=== PATIENT | male | born 1975 | race American Indian/Alaskan Native ===

== ENCOUNTER 2016-08-14 10:46 | Inpatient (IN) | payer BC, OTHER ==
[2016-08-14 11:16] VITALS: BMI 21.4
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
--- NOTE | 2016-08-14 12:13 | RAD ---
HISTORY: medical clearance COMPARISON: No prior. FINDINGS: LUNGS: No active pulmonary disease. PLEURA: No significant pleural effusion identified, no pneumothorax apparent. CARDIOVASCULAR: Normal. OSSEOUS STRUCTURES: No significant abnormalities. VISUALIZED UPPER ABDOMEN: Normal. OTHER FINDINGS: None. IMPRESSION: No active disease.
[2016-08-14 12:51] LABS: ADD MANUAL DIFF? NO
[2016-08-14 12:58] LABS: BASO # 0.03 K/mm3 (0.0-2.0); BASO % 0.6 % (0.0-3.0); EOS # 0.1 (0.0-0.7); EOS % 2.3 % (1.5-5.0); GRAN # 2.05 (1.4-6.5); GRAN % 43.2 % (50.0-68.0); HEMATOCRIT 41.8 % (42.0-52.0); LYMPH # 2.1 (1.2-3.4); LYMPH % 44.2 % (22.0-35.0); MEAN CELL VOLUME 82.3 fL (80.0-105.0); MEAN CORPUSCULAR HEMOGLOBIN 29.3 pg (25.0-35.0); MEAN CORPUSCULAR HGB CONC 35.6 g/dl (31.0-37.0); MEAN PLATELET VOLUME 11.4 fl (7.0-11.0); MONO # 0.5 (0.1-0.6); MONO % 9.7 % (1.0-6.0); PLATELET COUNT 194 10^3/uL (120.0-450.0); RED CELL DISTRIBUTION WIDTH 12.5 % (11.5-14.5); WHITE BLOOD COUNT 4.8 10^3/ul (4.5-11.0)
[2016-08-14 13:05] LABS: ALB/GLOB RATIO 1.2 (1.1-1.8); ALKALINE PHOSPHATASE 63 U/L (38-133); ALT/SGPT 17 U/L (7-56); AST/SGOT 26 U/L (15-59); BILIRUBIN,TOTAL 0.4 mg/dL (0.2-1.3); BLOOD UREA NITROGEN 8 mg/dL (7-21); CALCIUM 9.5 mg/dL (8.4-10.5); CARBON DIOXIDE 25 mmol/L (21-33); CHLORIDE 103 mmol/L (95-110); GFR AFRICAN-AMERICAN > 60; GLUCOSE,RANDOM 89 mg/dL (70-110); POTASSIUM 4.2 mmol/L (3.6-5.0); SODIUM 139 mmol/L (132-148); TOTAL PROTEIN 7.5 g/dL (5.8-8.3)
[2016-08-14 13:20] LABS: URINE BILIRUBIN NEGATIVE (NEGATIVE); URINE BLOOD NEGATIVE (NEGATIVE); URINE GLUCOSE (UA) NEGATIVE (NEGATIVE); URINE KETONE NEGATIVE (NEGATIVE); URINE LEUKOCYTE ESTERASE NEGATIVE Leu/uL (NEGATIVE); URINE PROTEIN NEGATIVE mg/dL (<30 mg/dL); URINE UROBILINOGEN 0.2 E.U./dL (<1 E.U./dL)
[2016-08-14 13:23] LABS: URINE APPEARANCE CLEAR (CLEAR); URINE COLOR YELLOW (YELLOW)
[2016-08-14 20:04] VITALS: O2SAT 99
[2016-08-14] MEDS ORDERED: Magnesium Hydroxide Susp 30 ml UD PO PRN (21:06)
[2016-08-14 21:36] VITALS: RESP 20
[2016-08-15 08:09] LABS: CHOLESTEROL 213 mg/dL (130-200); GLUCOSE,FASTING 99 mg/dL (65-110)
--- NOTE | 2016-08-15 12:09 | CARD ---
APPROVED REPORT EKG Measurement Heart [id number] <Conclusion> Normal sinus rhythm Nonspecific T wave abnormality Abnormal ECG
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
--- NOTE | 2016-08-15 16:37 | CON ---
DATE: 08/15/2016 CHIEF COMPLAINT: Evaluation from a neurological etiology psychosis. HISTORY OF PRESENT ILLNESS: A 41-year-old man with no significant past medical history who came [facility] who is a [place] larry, for bizarre and agitated behavior since 08/10/2016. Was transferre d to [facility] where he was released within less than 24 hours and was brought here for further evaluation . He says he feels his head is empty and feels like somebody is listening and he said listening to w hat he is saying. Otherwise, his motor exams and his sensory exam is completely normal. He denies a ny confusional episodes at this time. He gives pretty decent history, though his tangential and his thoughts are disorganized. He denies any headaches, any change in sense of vision, taste or smell. His neuro examination is actually normal in terms of motor and sensory though he has some mild poor a ttention span in terms of cognition. His labs have been unremarkable in terms of his CMP. PAST MEDICAL HISTORY: Nothing significant. Denies any psychiatric history. PAST SURGICAL HISTORY: Denies. FAMILY HISTORY: Noncontributory. SOCIAL HISTORY: , 3 kids, works, has no history of violence. Immigrated from [facility] 17 years ago. No illicit drug use, smoking, or ETOH abuse. FAMILY HISTORY: Noncontributory. PHYSICAL EXAMINATION: VITAL SIGNS: Temperature 98.2, pulse rate is 66, blood pressure 126/84, respiratory rate 20, oxygen 98% on room air. GENERAL: The patient is sitting up in bed in no acute distress. HEENT: Atraumatic, normocephalic. PERRLA. Extraocular muscles intact. NECK: Supple, no JVD, no adenopathy noted. LUNGS: Clear to auscultation. No adventitious sounds. HEART: S1, S2, normal rate and rhythm. No murmurs, rubs, or gallops. ABDOMEN: Soft, nontender, nondistended. Bowel sounds are present. EXTREMITIES: No clubbing, no cyanosis. Peripheral pulses 2+ bilaterally. NEUROLOGIC: The patient is alert, oriented to person, place, month and year. Speech is fluent witho ut any errors. His attention span is slow and his speech is slightly disorganized and tangential. H e does have some loose associations. Otherwise, cranial nerves II through XII are intact. MOTOR: Moves all extremities equally. Normal tone, normal bulk of muscle. No pronator drift seen. SENSORY: Light touch, pinprick, proprioception, vibration intact. DTRs 2+ throughout. COORDINATION: [id number] intact. GAIT: Deferred for now. LABORATORY DATA: Sodium is 139, potassium 4.2, chloride 103, carbon dioxide 25, BUN of 8, creatinine 0.9, random glucose of 89. ASSESSMENT AND PLAN: This is a 41-year-old man with no significant past medical history, came in [place] with bizarre behavior and is being worked up for evaluation for schizophreniform/late onset makeda izophrenia. I was asked to evaluate for his possible psychosis. I feel like psychosis is more of ps ychiatric issue, more of a possibly schizophreniform/schizophrenia etiology rather than anything cent ral in nature. I feel like: 1. We should recommend to get a CAT scan of the head to see his ventricles as well as to see any abn ormalities in the frontal area. 2. Can agree to continue with Risperdal 1 mg a.m./bedtime for psychosis and Cogentin 0.5 mg a.m./bed time for possible extrapyramidal symptoms. 3. Monitor closely and avoid nighttime interruptions and continue current plan of medical management . No further neurological workup needed at this time. Please reconsult if necessary. Jacob Regan MD cc: [phone] TT: 08/15/2016 16:37:29 Confirmation # [id number] Dictation # [id number] benjamin
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
[2016-08-16 07:39] LABS: IRON 48 ug/dL (45-180)
[2016-08-16 07:49] LABS: FREE T4 0.85 ng/dL (0.78-2.19)
[2016-08-16] MEDS: Alum-Mag Hydrox-Simethicone Susp (30 mL) PO PRN (07:51)
[2016-08-16 08:03] LABS: THYROID STIMULATING HORMONE 3.13 mIU/mL (0.46-4.68)
--- NOTE | 2016-08-16 09:46 | CT ---
PROCEDURE: CT HEAD WITHOUT CONTRAST. HISTORY: psyhcosis COMPARISON: None available. TECHNIQUE: Axial computed tomography images were obtained through the head/brain without intravenous contrast. Radiation dose: Total exam DLP = 723 mGy-cm. FINDINGS: HEMORRHAGE: No intracranial hemorrhage. BRAIN: No mass effect or edema. No atrophy or chronic microvascular ischemic changes. VENTRICLES: Unremarkable. No hydrocephalus. CALVARIUM: Unremarkable. PARANASAL SINUSES: In prominent right lateral sphenoid sinus extension-well pneumatized No significant inflammatory changes. MASTOID AIR CELLS: Unremarkable as visualized. No inflammatory changes. OTHER FINDINGS: None. IMPRESSION: Normal CT of the Head.
--- NOTE | 2016-08-16 12:34 | RAD ---
PROCEDURE: Radiographs of the Right Shoulder HISTORY: c/o pain and thinks its dislocated COMPARISON: No prior. FINDINGS: BONES: Normal. No fracture. JOINTS: Normal. Glenohumeral and acromioclavicular joints preserved. No osteoarthritis. SOFT TISSUES: Normal. OTHER FINDINGS: None. IMPRESSION: Normal radiographs of the right shoulder.
--- NOTE | 2016-08-16 13:09 | PN ---
DATE: 08/16/2016 The patient is a 41-year-old, seen and examined, complaining of right shoulder pain. Complaining of having fluid in the ear. Denies any fever or chills. No nausea, vomiting, no diarrhea. PHYSICAL EXAMINATION: VITAL SIGNS: He is afebrile, pulse 77, respirations 20, blood pressure 136/92. LUNGS: Bilateral fair airflow, no rhonchi or crackle. HEART: S1, S2 audible, no murmur. ABDOMEN: Soft, nontender, no rebound, no guarding. NEUROLOGIC: He is awake and alert, able to communicate. LABORATORY DATA: TIBC is 249. Iron is 48. Total cholesterol 212. Thyroid profile is within normal limits. Ceruloplasmin level is pending. Urinalysis is unremarkable. Urine tox is negative. RPR i s negative. CT scan of the head is unremarkable. X-ray of the shoulder, normal radiograph. ASSESSMENT: 1. Right shoulder sprain. 2. Paranoid schizophrenia. 3. Bizarre behavior with disorganized thoughts. PLAN: Will arrange for and examine his ear; however, at this point, I will put him on an anti- inflammatory for his right shoulder sprain and watch his response. Xu Cornejo MD cc: [phone] TT: 08/16/2016 13:09:06 Confirmation # [id number] Dictation # [id number] shyam
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
--- NOTE | 2016-08-17 12:52 | PCM.PYCHPN ---
Psychiatric Progress Note - Psychiatric Progress Note Patient seen today, length of contact: 30 minutes Patient Chief Complaint: "I groggy today" Problems Identified/Issues Discussed: Suicide/ homicide prevention, past psychiatric h/o, current psychiatric symptoms , medical problems, risk/benefits and alternatives of medications, medications compliance, coping strategies, substance abuse h/o, relapse prevention, importance of follow up with psychiatrist and therapist, discharge plan. Medical Problems: pt is healthy pt was seen by medical team had XR of the right shoulder, no pathology was seen by neurology CT of the head WNL Diagnostic Results: 08/14/16 12:45 08/14/16 12:45 Lab Results 08/16/16 07:00: Magnesium 2.0, Iron 48, TIBC 249 L, % Saturation 19 L, Ferritin 85.2, Free T4 0.85, TSH 3rd Generation 3.13 08/15/16 07:45: Fasting Glucose 99, Triglycerides 122, Cholesterol 213 H, LDL Cholesterol Direct 141 H, HDL Cholesterol 47, TSH 3rd Generation 3.04, RPR Nonreactive 08/14/16 12:50: Urine Color Yellow, Urine Appearance Clear, Urine pH 6.0, Ur Specific [place] 1.010, Urine Protein Negative, Urine Glucose (UA) Negative, Urine Ketones Negative, Urine Blood Negative, Urine Nitrate Negative, Urine Bilirubin Negative, Urine Urobilinogen 0.2, Ur Leukocyte Esterase Negative, Urine Opiates Screen Negative, Urine Methadone Screen Negative, Ur Barbiturates Screen Negative, Ur Phencyclidine Scrn Negative, Ur Amphetamines Screen Negative , U Benzodiazepines Scrn Negative, U Oth Cocaine Metabols Negative, U Cannabinoids Screen Negative 08/14/16 12:45: WBC 4.8, RBC 5.08, Hgb 14.9, Hct 41.8 L, MCV 82.3, MCH 29.3, MCHC 35.6, RDW 12.5, Plt Count 194, MPV 11.4 H, Gran % 43.2 L, Lymph % (Auto) 44.2 H, [facility] % (Auto) 9.7 H, Eos % (Auto) 2.3, Baso % (Auto) 0.6, Gran # 2.05, Lymph # 2.1, [facility] # 0.5, Eos # 0.1, Baso # 0.03, Sodium 139, Potassium 4.2, Chloride 103, Carbon Dioxide 25, Anion Gap 15, BUN 8, Creatinine 0.9, Est GFR ( Amer) > 60, Est GFR (Non-Af Amer) > 60, Random Glucose 89, Calcium 9.5, Total Bilirubin 0.4, AST 26, ALT 17, Alkaline Phosphatase 63, Total Protein 7.5 , Albumin 4.1, Globulin 3.4, Albumin/Globulin Ratio 1.2, Salicylates < 1 L, Acetaminophen < 10.0 L, Alcohol, Quantitative < 10 Vital Signs Temp Pulse Resp BP Pulse Ox 08/16/16 07:22 98.4 F 77 20 136/92 H 08/15/16 16:00 75 128/78 08/15/16 06:57 98.2 F 66 20 126/84 08/14/16 21:10 20 08/14/16 21:08 98.3 F 80 20 132/90 08/14/16 20:00 83 16 130/83 99 08/14/16 17:00 72 16 122/70 100 08/14/16 14:02 73 18 128/69 99 08/14/16 12:01 79 18 130/76 99 08/14/16 11:19 98.1 F 85 16 132/80 99 Temp Pulse Resp BP Pulse Ox 97.9 F 69 20 109/68 99 08/17/16 06:56 08/17/16 06:56 08/17/16 06:56 08/17/16 06:56 08/14/16 20:00 DSM 5 Symptoms Update: Patient is a 41 years old -Kaz[place] male originally from [facility], with not known previous psychiatric h/o, pt was admitted to the [facility] psych inpatient unit for evaluation of bizarre and agitated behavior on 08/10/2016, was transferred to the [facility] from where pt was released within less than 24hrs, pt has three kids, currently working in a [employer] company, was brought in by his sister for evaluation of bizarre and disorganized behavior, pt needs further evaluation and stabilization, medication initiation and titration, close observation, medical and neurological evaluation. Pt is Creole speaking, this underwriter utilized staff for translation. pt was seen with the treatment team, pt said "I feel little better, my head not that empty anymore", patient's thought process is better organized. pt c/o feeling sleepy. Pt has future plans to stay with his sister and go back to [facility] "to stay there for couple of months". family dynamics seems to be very poor, pt's left a house for five days with younger child and pt did not know where she was, "when she came back she just said do not talk to her no more". Pt reported that he tolerates meds well, no side effects observed or reported, AIMS 0 Impression: psychosis NOS brief psychotic d/o r/o schizophreniform r/o schizophrenia Medication Change: No (pt felt sleepy) Medical Record Reviewed: Yes Consults ordered or reviewed: medical consult appreciated Neurology consult appreciated Mental Status Examination - Cognitive Function Orientation: Person, Place Memory: Impaired Attention: Poor (some improvement) Concentration: Poor (some improvement) Association: Loose Fund of Knowledge: Poor - Mood Mood: Neutral - Affect Affect: Flat - Formal Thought Process Formal Thought Process: Hallucinations (denied), Delusions (denied), Paranoia, Loosening of associations, Circumstantial, Thought Broadcasting - Suicidal Ideation Suicidal Ideation: No - Homicidal Ideation Homicidal Ideation: No Goal/Treatment Plan - Goal/Treatment Plan Need for Continued Stay: Remain at risks for inpatient hospitalization, Severe depression anxiety, Discharge may exacerbated symptoms, Severe functional impairment Progress Toward Problem(s) and Goals/Treatment Plan: Milieu/structure/supportive therapy Risperdal 1mg am 2hs for psychosis cogentin 0.5mg amhs for possible EPS will give PRN meds Medical consult appreciated labs reviewed Neurology consult, pt has psychosis, and AMS will call for collaterals pt gave permission to speak to his sister Maria De Jesus [phone] collaterals from pt's cousin 08/16/16 will monitor closely Estimated Date of D/C: 08/21/16 (will monitor closely)
--- NOTE | 2016-08-17 13:17 | PN ---
DATE: 08/17/2016 SUBJECTIVE: The patient is a 41-year-old, seen and examined, sitting in chair, states he feels very sleepy after he eats. He is not sure if he has diabetes in the family; however, he is very concerned . PHYSICAL EXAMINATION: GENERAL: Otherwise, he is awake and alert, seems to be doing a little better. VITAL SIGNS: He is afebrile, pulse 60, respirations 20, blood pressure 109/68. LUNGS: Bilateral fair airflow, no rhonchi or crackle. HEART: S1, S2 audible. No murmur. ABDOMEN: Soft, nontender. No rebound, no guarding. NEUROLOGIC: He is awake and alert, communicative, ambulatory. ASSESSMENT AND PLAN: All his metabolic workup is negative. Has been started on psych medication. Wi ll order for fingerstick for the next 24 hours to see his blood sugar level before and after eating. Xu Cornejo MD cc: [phone] TT: 08/17/2016 13:17:09 Confirmation # [id number] Dictation # [id number] shyam
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
--- NOTE | 2016-08-18 22:35 | PN ---
DATE: 08/18/2016 SUBJECTIVE: The patient is a 41-year-old, seen and states he feels a little better, complaining of f eeling sleepy and tired at times, more so after eating. PHYSICAL EXAMINATION: VITAL SIGNS: He is afebrile, pulse 67, respirations 20, blood pressure 117/67. LUNGS: Bilateral fair airflow. No rhonchi or crackle. HEART: S1, S2 audible. No murmur. ABDOMEN: Soft, nontender. No rebound. No guarding. NEUROLOGIC: He is awake and alert, communicative, ambulatory. ASSESSMENT: 1. Acute change in mental status. 2. Paranoid schizophrenia. 3. Chronic pain. PLAN: Currently, the patient is stable from medical point of view. Psych medication will be adjuste d psychiatrist, will see the patient p.r.n. Xu Cornejo MD cc: [phone] TT: 08/18/2016 22:34:42 Confirmation # [id number] Dictation # [id number] tn
[2016-08-19 07:11] VITALS: TEMP 98.2
--- NOTE | 2016-08-19 08:26 | PCM.PYCHPN ---
Psychiatric Progress Note - Psychiatric Progress Note Patient seen today, length of contact: 25 minutes Patient Chief Complaint: "good, better" Problems Identified/Issues Discussed: I reviewed assessment and recent notes. Patient was interviewed at bedside. Patient is superficially cooperative with questioning and denies any new concerns. He is alert and oriented x3. Mood is reported as "good, better". Affect is polite and in control. He denies hallucinations, SI or HI. This provider did not note any bizarre behavior during our interview. He is not responding to internal stimuli and delusions were not elicited Nursing notes indicate that patient has been calm and more visible on the unit. He is compliant with medications and going to groups. There were no management issues overnight. Diagnostic Results: psychosis NOS brief psychotic d/o r/o schizophreniform r/o schizophrenia Medication Change: No ( ) Medical Record Reviewed: Yes (notes, reports, labs, vitals) Mental Status Examination - Cognitive Function Orientation: Person, Place Memory: Impaired Attention: Poor (some improvement) Concentration: Poor (some improvement) Association: Loose Fund of Knowledge: Poor - Mood Mood: Neutral ("good, better") - Affect Affect: Flat - Formal Thought Process Formal Thought Process: Hallucinations (denied), Delusions (none elicited today) , Paranoia, Loosening of associations, Circumstantial, Thought Broadcasting - Suicidal Ideation Suicidal Ideation: No - Homicidal Ideation Homicidal Ideation: No Goal/Treatment Plan - Goal/Treatment Plan Need for Continued Stay: Remain at risks for inpatient hospitalization, Severe depression anxiety, Discharge may exacerbated symptoms, Severe functional impairment Progress Toward Problem(s) and Goals/Treatment Plan: * c/w current tx and plan * No new weekend labs * Vitals reviewed and noted below: Selected Entries 08/18/16 08/18/16 07:41 16:52 Temperature 98.1 F Pulse Rate 67 70 Respiratory 20 Rate Blood Pressure 106/71 117/67 Estimated Date of D/C: 08/21/16 (will monitor closely)
[2016-08-19] MEDS: Alum-Mag Hydrox-Simethicone Susp (30 mL) PO PRN (15:55)
--- NOTE | 2016-08-20 09:14 | PCM.PYCHPN ---
Psychiatric Progress Note - Psychiatric Progress Note Patient seen today, length of contact: 25 minutes Patient Chief Complaint: "good" Problems Identified/Issues Discussed: I reviewed recent notes and patient was interviewed at bedside. Patient is superficially cooperative with questioning and denies any new concerns. He is alert and oriented x3. Mood is still reported as "good". Affect is polite and in control but a little disengaged. This may be due to the language barrier. He denies hallucinations, SI or HI. He has been sleeping well. This provider did not note any bizarre behavior over the weekend. He is not responding to internal stimuli and delusions were not elicited. there were no behavioral or management issues over the weekend. Diagnostic Results: psychosis NOS brief psychotic d/o r/o schizophreniform r/o schizophrenia Medication Change: No ( ) Medical Record Reviewed: Yes (notes, reports, labs, vitals) Mental Status Examination - Cognitive Function Orientation: Person, Place Memory: Impaired Attention: Poor (some improvement) Concentration: Poor (some improvement) Association: Loose Fund of Knowledge: Poor - Mood Mood: Neutral ("good, better") - Affect Affect: Flat - Formal Thought Process Formal Thought Process: Hallucinations (denied all weekend), Delusions (none elicited this weekend), Paranoia, Loosening of associations, Circumstantial, Thought Broadcasting - Suicidal Ideation Suicidal Ideation: No - Homicidal Ideation Homicidal Ideation: No Goal/Treatment Plan - Goal/Treatment Plan Need for Continued Stay: Remain at risks for inpatient hospitalization, Severe depression anxiety, Discharge may exacerbated symptoms, Severe functional impairment Progress Toward Problem(s) and Goals/Treatment Plan: * c/w current tx and plan * No new weekend labs * Vitals reviewed and noted below: Selected Entries 08/19/16 08/19/16 07:10 14:00 Temperature 98.2 F Pulse Rate 65 66 Respiratory 20 Rate Blood Pressure 110/70 118/78 Estimated Date of D/C: 08/21/16 (will monitor closely)
[2016-08-21 08:01] VITALS: BP 113/75; PULSE 66
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
== END 2016-08-21 15:08 | disposition home or self-care (01) | DRG 885 ==
LOC: ED 10:46 → ERH 17:02 → PSYC 20:13
PROVIDERS: ADMIT Psychiatry & Neurology Psychiatry; ATTEND Psychiatry & Neurology Psychiatry
PROC: GZ3ZZZZ Medication Management (ICD-10-PCS; principal; 2016-08-14)
DX: F28 Other psychotic disorder not due to a substance or known physiological condition (principal); F23 Brief psychotic disorder; M25.511 Pain in right shoulder; G89.29 Other chronic pain; F80.81 Childhood onset fluency disorder